=== PATIENT | female | born 1945 | race Two or more races ===

== ENCOUNTER 2021-01-18 09:17 | Outpatient (CLI) | payer MEDICARE | END 2021-01-18 23:59 | disposition home or self-care (01) | LOC: CVU 09:17 | PROVIDERS: ATTEND Internal Medicine Cardiovascular Disease | DX: I65.23 Occlusion and stenosis of bilateral carotid arteries (principal); I10 Essential (primary) hypertension; E11.9 Type 2 diabetes mellitus without complications; I35.8 Other nonrheumatic aortic valve disorders; I25.10 Atherosclerotic heart disease of native coronary artery without angina pectoris; Z86.79 Personal history of other diseases of the circulatory system | CPT/HCPCS: 93306; 93356; 93880 ==